=== PATIENT | female | born 1995 | race Caucasian/White ===

== ENCOUNTER 2017-03-23 22:54 | Emergency (ER) | payer OTHER ==
--- NOTE | ~2017-03-23 | CR21 ---
[facility] A Service of [facility] RADIOLOGY TEXT RESULTS PATIENT: WAYNE CARL LOCATION: [facility] : [birth year] UNIT #: [id number] AGE: [address]: Dion Wheeler MD SEX: F ORDER DR: [id number] [facility] [address] [place], [place] [address] [id number] MR#: [id number] Acc #: [id number] NAME: WAYNE CARL : 1995 SEX: F STUDY DATE/TIME: 03/23/2017 23:37 UNIT: [facility] ROOM: STUDY DESCRIPTION: CR Ankle Min 3 Views Rt Attending Physician: Dino Wheeler M.D. Ordering Physician: [facility] Primary Care Physician: Nazario Barnes M.D. MEDICAL IMAGING REPORT This report is preliminary unless electronic signature is present EXAM Right ankle series INDICATIONS Right ankle pain after jumping injury today. PROCEDURE Three views of the right ankle COMPARISON None FINDINGS No acute fracture. No dislocation. IMPRESSION No acute findings Dictated by... Rom Mann M.D. THIS IS AN ELECTRONICALLY VERIFIED REPORT Rom Mann M.D. at 03/24/2017 9:56 PM FAMILAI/radha TD: 03/24/2017 11:46 JOB #: [id number] MEDICAL IMAGING REPORT Page 1 of 1 COPY
[~2017-03-23 22:54] MED LIST: AMOXICILLIN500 M1 PO; AUGMENTIN PO; FLEXERIL10 MG PO; MOTRIN600 MG PO; NAPROSYN500 MG PO; PREDNISONE10 MG PO; TRAMADOL HCL50 M1 PO
== END 2017-03-24 01:18 | disposition home or self-care (01) ==
LOC: CED 22:54
DX: S96.911A Strain of unspecified muscle and tendon at ankle and foot level, right foot, initial encounter (principal); K21.9 Gastro-esophageal reflux disease without esophagitis; Z88.1 Allergy status to other antibiotic agents; X50.1XXA Overexertion from prolonged static or awkward postures, initial encounter; Y93.89 Activity, other specified; Y92.69 Other specified industrial and construction area as the place of occurrence of the external cause
CPT/HCPCS: 29540; 73610; 99283